=== PATIENT | female | born 1955 | race Hispanic/Latino ===

== ENCOUNTER → 2017-03-06 | Day surgery (SDC) | payer OTHER ==
[~2017-03-06] VITALS: Ht 154.9 cm; Wt 72.6 kg
--- NOTE | 2017-03-06 13:59 | Operative Report ---
Operative/Inv Procedure Report Surgery Date: 03/06/17 Name of Procedure: urethral sling, cystoscopy Pre-Operative Diagnosis: stress incontinence Post-Operative Diagnosis: same Estimated Blood Loss: 200cc Surgeon/Wood Machinist Apprentice: Genesis Giang MD Anesthesia: general endotracheal tube Implants: vafinal mesh Complications: none Condition: stable Operative Indication: stress incontinence Operative/Procedure Note Note: This an operative dictation on patient Uma Roa. She was seen in the office for stress urinary incontinence. She was given the options of sling versus difficult therapy versus urethral bulking. She opted for urethral sling and the risks benefits and alternatives were given. All questions were answered. Patient was identified in the holding area and the consent was signed. All questions were answered once again. Patient was taken to the operating room placed on the operating table in the supine position. Timeout was performed. Once IV sedation was started she was placed in the dorsolithotomy position and prepped and draped in the standard sterile fashion after shaving the genitalia region. Elmore catheter was placed in the bladder was emptied. The Elmore was clamped and placed on the patient's abdomen. Since retractor was placed and 1% lidocaine with epinephrine was placed into the anterior vaginal wall beneath the urethra. Incision was made and the vaginal flaps are created taking care not to injure the urethra. The patient's right vaginal flap was created and upon doing so the patient started having Valsalva that required aborting of the procedure for period of time. The LITHARGE SUPERVISOR informed me that the patient was vomiting bile. The IV sedation was converted to endotracheal tube intubation with assistance of the camera. Once this tube was secured the remainder of the surgery was completed. The vaginal flaps are created on the patient's left side as well. The Coloplast Altis Sling kit was opened. The trochars provided were used to place the urethral sling at the mid urethral level. First on the patient's left side into the obturator fascia followed by the right side. Sling was seen to be in a horizontal fashion in a tension-free manner beneath the urethra. DeBakey's between the urethra and the sling was used to tension the sling to the proper setting. The Prolene suture was then cut. There was no mesh in the vaginal fornices. Incision was closed after irrigation with bacitracin irrigation. 3-0 running locking suture was placed. Cystoscopy was performed and the bladder was globally inspected. There was no mesh in the bladder or the urethra. The anatomy was within normal limits. Bladder was emptied. The vagina was packed with 2 inch vaginal packing impregnated with bacitracin ointment. Sponge and needle count were correct at the end of the case. Patient tolerated the procedure well. Findings: no mesh in the bladder lateral perales, urethra or vaginal fornices. Discharge Disposition: PACU
== END ==
LOC: STS 02:51
DX: N39.3 Stress incontinence (female) (male) (principal); R35.0 Frequency of micturition; N81.6 Rectocele; N39.0 Urinary tract infection, site not specified; E03.9 Hypothyroidism, unspecified
CPT/HCPCS: C1771; J0131; J0690; J2250; J2405